=== PATIENT | female | born 1985 | race African-American/Black ===

== ENCOUNTER 2021-11-18 12:03 | Observation (INO) | payer BC, SELFPAY ==
--- NOTE | ~2021-11-18 | CT_ITS ---
EXAMINATION: CT abdomen pelvis w con DATE: 11/18/2021 14:29 INDICATION: epigastric pain, nausea and vomiting. Multiple prior surg r/o SBO TECHNIQUE: Computed tomography (CT) of the abdomen and pelvis was performed with 100 mL Omnipaque-350 intravenous contrast. Automated exposure control and iterative reconstruction technique were employe d. The dose-length product was 1268.14 mGy-cm. COMPARISON: 09/29/2017. FINDINGS: Lower thorax: Unremarkable. Liver: Normal. Biliary/Gallbladder: Gallbladder is absent. No bile duct dilation. Spleen: Normal. Pancreas: No mass or duct dilation. Adrenals:No mass. Kidneys: No mass, stone, or hydronephrosis. GI tract: Mild dilation of several small bowel loops in the left upper quadrant, without transition p oint. Distal esophageal and gastric wall edema. Chronic submucosal fat infiltration in the cecum. Mil d water density wall thickening in the transverse and descending colon. Normal appendix. Mesentery/Peritoneum: No ascites, mass, or free air. Retroperitoneum: No mass. Pelvis: Uterus absent, otherwise the pelvic organs are within normal limits. Bones/Soft Tissues: Soft tissues and body wall unremarkable. No acute osseous finding. Additional Findings: None. IMPRESSION: Mild left upper quadrant small bowel dilation, likely ileus. Early obstruction is not excluded. Infec tious/inflammatory colitis. Esophagitis/gastritis. Reviewed, dictated and finalized at location K. IMPRESSION: Mild left upper quadrant small bowel dilation, likely ileus. Early obstruction is not excluded. Infectious/inflammatory colitis. Esophagitis/gastritis.
--- NOTE | ~2021-11-18 | XR_ITS ---
EXAMINATION: XR abdomen obstructive series EXAM DATE: 11/19/2021 05:59 INDICATION: Ileus. TECHNIQUE: Frontal upright projection of the upper abdomen, frontal projection of the lower abdomen f or interpretation. Correlation is made to CT from yesterday. FINDINGS: There is expected amount of colonic stool and gas. No small bowel dilation, nonobstructiv e bowel gas pattern. There are no suspicious calcifications identified. There is no organomegaly suspected. The bones are unremarkable. There is no free intraperitoneal air. The lung bases are clear. There are cholecystectomy clips. IMPRESSION: Unremarkable abdomen x-ray exam. Reviewed, dictated and finalized at location A.
--- NOTE | ~2021-11-18 | XR_ITS ---
EXAMINATION: XR UGI water soluble w sbs EXAM DATE: 11/19/2021 12:45 INDICATION: Dysphagia, esophagitis, ileus vs obstruction. TECHNIQUE: [employer] radiograph was acquired. Water-soluble Omnipaque solution upper GI examination and s mall bowel series was performed by radiologist Enzo Rothman M.D. Pulsed dose reduction fluoroscopy wa s used with fluoroscopic time of 0.6 minutes. The DAP for this procedure was 16.5 Gycm2. A total of 104 images obtained for the exam. Correlation is made to CT abdomen pelvis from 11/18/2021. FINDINGS: There is no esophageal stricture, diverticulum or mass identified. There is small sliding gastroesophageal hiatal hernia. The gastroesophageal junction is open at times but patient was in the upright position, reflux was not specifically observed. The stomach has a normal appearance without evidence of mass lesion, ulceration or filling defect. T here is normal rugal fold pattern. The duodenum and duodenal sweep are normal in appearance. Mildly dilated jejunum, could be mild ileus/enteritis. Ileal and jejunal fold patterns are normal. T here is no small bowel wall thickening or mass effect displacing small bowel. There are no intralumi nal filling defects identified. Terminal ileum is normal in appearance. Contrast reached the colon between 1 and 1.5 hours. IMPRESSION: 1. Mildly dilated jejunum, could be mild ileus/enteritis. Normal transit time. 2. Small sliding gastroesophageal hiatal hernia. Reviewed, dictated and finalized at location A.
[2021-11-18 12:35] VITALS: BP 148/97; PULSE 110; RESP 16; TEMP 37.2; O2SAT 100
--- NOTE | 2021-11-18 13:37 | PC.NURSE ---
Patient states she is unable to urinate at this time.
--- NOTE | 2021-11-18 13:40 | ED.ABDPAIN ---
HPI - Abdominal Pain General Chief Complaint: Abdominal Pain Stated Complaint: vomiting Time Seen by Provider: 11/18/21 13:05 Source: patient History of Present Illness HPI narrative: Patient presents with abdominal pain. Patient ports she has had abdominal pain that radiates to her back for approximately 1 month however the past few days it has gotten more severe and is now associated with nausea and vomiting. Pain is achy, constant, worse with laying flat improves with sitting up. since her pain was getting worse she came to the ER for further evaluation. She denies any blood bile in her excretion she denies any diarrhea or melena she denies any urinary symptoms she does report subjective fevers at home. Reports prior history of cholecystectomy appendectomy and hysterectomy. Denies any recent antibiotics Related Data Home Medications Medication Instructions Recorded Confirmed bupropion HCl 150 mg PO DAILY 11/18/21 11/18/21 Allergies Allergy/AdvReac Type Severity Reaction Status Date / Time No Known Allergies Allergy Verified 11/18/21 17:29 Review of Systems Review of Systems: CONSTITUTIONAL: Denies fever, chills, or sweats. EYES: Denies visual changes, redness, or discharge. ENT: Denies rhinorrhea, congestion, sore throat, or otalgia. CARDIOVASCULAR: Denies chest pain, palpitations, or edema. RESPIRATORY: Denies cough or dyspnea. GASTROINTESTINAL: Reports abdominal pain nausea and vomiting GENITOURINARY: Denies dysuria or hematuria. SKIN: Denies rash or itching. MUSCULOSKELETAL: Denies joint pain, or myalgia. NEUROLOGIC: Denies headache, numbness, dizziness, or weakness. PSYCHIATRIC: Denies anxiety or depression. All systems reviewed & are unremarkable except as noted in HPI and below PMFSH Past Medical History Medical History Anxiety Fibroid uterus Obesity Surgical History Surgical History History of hysterectomy 06/2019 - Robotic-assisted laparoscopic total vaginal hysterectomy with bilateral salpingectomy History of laparoscopic appendectomy 06/2017 - Laparoscopic appendectomy with pathology findings of early acute appendicitis with serosal and subserosal endometriosis History of laparoscopic cholecystectomy 2010 at [place] Family History Family History (Updated 11/18/21 @ 17:20 by Deanna Muller RN) Grandparent Diabetes mellitus Hypertension Cervical cancer Sibling Hypertension Mother Aneurysm Social History Social History Smoking packs per day: 0.25 Smoking cigarettes per day: 5.0 Years smoked: 2 Smoking pack-years: 0.50 Smoking status: Current every day smoker Tobacco type: cigarettes Alcohol intake: current Drinks per week: 2 Alcohol use details: 3 glasses of wine per week Substance use: current Substance use type: marijuana Other substance usage details: Occasionally, not sure of last use Living arrangements: with family Gender identity (if verbalized by the patient): Female Spiritual care concerns: No Exam Narrative: GENERAL: Well-appearing, well-nourished, and in no acute distress. HEAD: Normocephalic, atraumatic. EYES: PERRLA and EOMI. ENT: Nares clear, no rhinorrhea or epistaxis. Mucous membranes moist. NECK: Supple. No masses. No JVD CHEST: Clear to auscultation. No respiratory distress. No wheezes rales or rhonchi HEART: Regular rate and rhythm. No murmur heard. Normal peripheral pulses. ABDOMEN: Moderate upper abdominal pain, no rebound or guarding soft, nondistended, normal active bowel sounds. EXTREMITIES: Normal range of motion. No edema. SKIN: Warm, dry, no rash. NEURO: No focal deficits. Alert and oriented x3. PSYCH: Normal mood and affect. Course Reevaluation(s) Reevaluation #1: Patient reports nausea is improved but continues to have abdominal sasha
[2021-11-18 13:49] LABS: Basophils Percent Auto 0.2 % (0.2-1.2); Eosinophils Absolute Auto 0.1 K/mm3 (0-0.3); Eosinophils Percent Auto 0.9 % (0-4.4); Hematocrit 42.5 % (37.0-47.0); Hemoglobin 13.2 g/dL (12.0-15.0); Immature Granulocyte Absolute 0.02 K/mm3 (0.00-0.031); Immature Granulocyte Percent A 0.3 % (0-0.5); Lymphocytes Percent Auto 12.2 % (18.3-44.2); Mean Corpuscular HGB Conc 31.1 g/dl (32-36); Mean Corpuscular Hemoglobin 27.3 pg (26-34); Mean Platelet Volume 10.2 fl (7.4-10.4); Monocytes Absolute Auto 0.4 K/mm3 (0.1-0.6); Monocytes Percent Auto 6.4 % (2.6-8.5); Neutrophils Absolute Auto 5.2 K/mm3 (1.3-6.7); Platelet Count Result 287 k/mm3 (150-375); Red Blood Count 4.83 M/mm3 (4.2-5.4); Red Cell Distribution Width 14.5 % (11.5-14.5); White Blood Count 6.6 K/mm3 (4.5-10.0)
[2021-11-18] MEDS: SODIUM CHLORIDE 0.9% IV 1,000 ML 999 ML IV CONT (13:49)
[2021-11-18] MEDS: ONDANSETRON INJ 4 MG/2 ML VIAL IV PUSH ×3 (13:50→21:16)
[2021-11-18] MEDS: MAG HYDROX/AL HYDROX/SIMETH 30 ML UDC PO ×3 (13:50→23:38)
[2021-11-18] MEDS: LIDOCAINE HCL 2% VISC SOLN 15 ML UDC 20 ML PO (13:50)
[2021-11-18 14:11] LABS: Alanine Aminotransferase 19 U/L (4-35); Albumin Level 4.4 g/dL (3.5-5.1); Alkaline Phosphatase 63 U/L (38-126); Anion Gap 5 mmol/L (8-16); Aspartate Amino Transferase 24 U/L (14-36); Bilirubin,Total 0.4 mg/dL (0.2-1.3); Blood Urea Nitrogen 12 mg/dL (7-17); Calcium 8.7 mg/dL (8.4-10.2); Carbon Dioxide 23 mmol/L (22-30); Chloride 105 mmol/L (98-107); Estimated CRCL calculation 132 ml/min; Estimated Glomerular Filt Rate > 60; Glucose 89 mg/dL (65-110); Lipase 63 U/L (23-300); Potassium 3.8 mmol/L (3.4-5.0); Sodium 133 mmol/L (137-145)
[2021-11-18 15:00] LABS: Appearance Urine Cloudy (Clear); Bilirubin Urine Negative (Negative); Blood Urine Trace-lysed (Negative); Glucose Urine UA Negative (Negative); Ketones Urine Negative (Negative); Leukocyte Esterase Ur Negative LEU/UL (Negative); Nitrate Urine Negative (Negative); Protein Urine Negative (Negative); Specific Grav Ur 1.015 (1.001-1.035); Urobilinogen Urine 0.2 mg/dL (<2.0); pH Urine 5.5 (5.0-9.0)
[2021-11-18 15:13] LABS: Squamous Epithelial Cell Urine Many /hpf (Few)
[2021-11-18 15:28] LABS: Add Urine Microscopic? YES; Color Urine Light Yellow (Yellow)
[2021-11-18] MEDS: KETOROLAC 15 MG/ML VIAL (*BKC) IV PUSH (15:58)
[2021-11-18 16:03] VITALS: BP 145/89; PULSE 96; RESP 18; O2SAT 100
--- NOTE | 2021-11-18 16:13 | PM.IMHP ---
H&P: HPI History of Present Illness Date/Time: 11/18/21 16:13 Chief Complaint: Abdominal pain, nausea, vomiting Narrative: This is a 35-year-old female who presented to the ER today with complaints of abdominal pain, nausea, and vomiting. She reports that she has dealt with constipation for years. She reports that for the last month, she has been experiencing mild cramping abdominal pain across her central abdomen that is associated with bloating. She initially felt this was related to constipation and she was taking magnesium citrate, 1/2 a bottle, about twice per week to help keep her bowels moving. She felt some relief of the bloating and gas after having a BM, but continued to have the cramping abdominal pain. She denies ever having this pain before in the past. She denies any diarrhea or other symptoms associated with this. She denies any close contacts with similar symptoms. Then, over the past 3 days, her abdominal pain gradually became more severe and she developed nausea and vomiting. She reports her abdominal pain continued to be cramping in nature and was radiating into her mid back lower back. She compares the pain to labor pains she experienced with her children. She reports having the constant feeling that she is full and bloated. She states that she has tried eating at home over the past 3 days and shortly after eating, she will vomit. She feels that eating does aggravate her pain. She denies any diarrhea. She denies bloody, bilious, or coffee-ground emesis. She denies hematochezia or melena. She reports that her stools are very hard and small with her last BM this morning around 4:00 am. She has not vomited since around 11:00 am this morning. The CT scan of the abdomen and pelvis showed mild left upper quadrant small bowel dilation, likely ileus, although early obstruction is not excluded, infectious/inflammatory colitis, esophagitis/gastritis. Labs are unremarkable with a normal WBC count. Our service has been consulted by the ED physician and she is being admitted to our service. She is now seen in the ER. Review of Systems Review of Systems: All systems reviewed & are unremarkable except as noted in HPI and below Constitutional: Constitutional: Reports as per HPI, Denies chills and Denies fatigue Eyes: Eyes: Reports no additional eye complaints and Denies change in vision ENT: Reports system reviewed and no additional complaints, except as documented and Reports Normal hearing present Cardiovascular: Cardiovascular: Reports no additional cardiovascular complaints, Denies chest pain and Denies leg edema Respiratory: Respiratory: Reports no additional respiratory complaints, Denies cough and Denies dyspnea Gastrointestinal: Gastrointestinal: Reports as per HPI, Reports no additional gastrointestinal complaints, Reports abdominal pain, Denies melena, Reports bloating, Denies hematochezia, Denies change in stool character, Denies coffee ground emesis, Reports constipation (chronic), Reports dysphagia, Denies diarrhea, Denies loose stools, Reports nausea, Reports vomiting and Denies hematemesis Genitourinary: Genitourinary: Reports no additional female genitourinary complaints, Denies hematuria and Denies dysuria Musculoskeletal: Musculoskeletal: Reports no additional musculoskeletal complaints, Denies deformity and Denies joint swelling Neurologic: Reports system reviewed and no additional complaints, except as documented, Denies dizziness, Denies focal weakness, Denies numbness and Denies tingling Psychiatric: Psychiatric: Reports anxiety (hx of anxiety, takes wellbutrin) [facility] Past Medical History Medical History Anxiety Fibroid uterus Obesity Surgical History Surgical History History of hysterectomy 06/2019 - Robotic-assisted laparoscopic total vaginal hysterectomy with bilateral salpingectomy History of
[2021-11-18 16:30] VITALS: BP 122/74; PULSE 86; RESP 16; TEMP 37.4; O2SAT 100
--- NOTE | 2021-11-18 16:30 | PC.NURSE ---
This patient, Cindy Sarkar, was admitted to 3 Med Surg Room 311-01. Patient/family oriented to hospital policies and general routines including ID bracelet, bed and alarms, visiting hours, pain management, procedures, bathroom and other care routines, personal items, smoking policy, room service/diet, and visiting hours.Repot received from [employer] [employer]. Information on how to activate the Rapid Response Team has been discussed. Patient/Family are encouraged to report perceived risks to care and to ask questions if they do not understand what they are told or what they should do.
[2021-11-18] MEDS: SODIUM CHLORIDE 0.9% IV 1,000 ML 125 ML IV CONT ×2 (17:02→23:38)
[2021-11-18] MEDS: MORPHINE SULFATE (*CRX) 4 MG/ML INJ IV PUSH ×2 (17:03→20:42)
[2021-11-18 17:08] VITALS: BMI 36.6
[2021-11-18] MEDS: PANTOPRAZOLE SODIUM IV 40 MG VIAL IV PUSH (17:41)
[2021-11-18 20:42] VITALS: PULSE 72; O2SAT 96
[2021-11-18 21:50] VITALS: BP 107/55; PULSE 69; RESP 18; TEMP 36.4; O2SAT 100
[2021-11-18 22:31] LABS: Anion Gap 7 mmol/L (8-16); Blood Urea Nitrogen 9 mg/dL (7-17); Calcium 8.1 mg/dL (8.4-10.2); Carbon Dioxide 22 mmol/L (22-30); Chloride 104 mmol/L (98-107); Estimated CRCL calculation 164 ml/min; Estimated Glomerular Filt Rate > 60; Glucose 114 mg/dL (65-110); Potassium 3.5 mmol/L (3.4-5.0); Sodium 133 mmol/L (137-145)
[2021-11-19 05:27] VITALS: BP 115/69; PULSE 85; RESP 18; TEMP 36.7; O2SAT 100
[2021-11-19] MEDS: MAG HYDROX/AL HYDROX/SIMETH 30 ML UDC PO ×4 (05:34→23:02)
[2021-11-19] MEDS: PANTOPRAZOLE SODIUM IV 40 MG VIAL IV PUSH ×2 (05:37→20:43)
[2021-11-19 05:45] LABS: Basophils Percent Auto 0.2 % (0.2-1.2); Eosinophils Absolute Auto 0.1 K/mm3 (0-0.3); Eosinophils Percent Auto 1.2 % (0-4.4); Hemoglobin 12.8 g/dL (12.0-15.0); Immature Granulocyte Absolute 0.02 K/mm3 (0.00-0.031); Immature Granulocyte Percent A 0.4 % (0-0.5); Lymphocytes Absolute Auto 0.95 K/mm3 (0.9-3.2); Lymphocytes Percent Auto 18.7 % (18.3-44.2); Mean Corpuscular HGB Conc 32.8 g/dl (32-36); Mean Corpuscular Volume 85.3 fl (80-100); Mean Platelet Volume 10.2 fl (7.4-10.4); Monocytes Absolute Auto 0.5 K/mm3 (0.1-0.6); Monocytes Percent Auto 9.6 % (2.6-8.5); Neutrophils Absolute Auto 3.6 K/mm3 (1.3-6.7); Neutrophils Percent Auto 69.9 % (45.5-73.1); Platelet Count Result 269 k/mm3 (150-375); Red Blood Count 4.57 M/mm3 (4.2-5.4); Red Cell Distribution Width 14.2 % (11.5-14.5); White Blood Count 5.1 K/mm3 (4.5-10.0)
[2021-11-19 05:55] LABS: Lipase 38 U/L (23-300); Magnesium 2.2 mg/dL (1.6-2.3)
[2021-11-19 06:00] LABS: Lactic Acid Reflex < 0.5 mmol/L (0.7-2.1)
[2021-11-19 08:25] VITALS: O2SAT 96
--- NOTE | 2021-11-19 10:10 | PM.PNGS ---
Progress Note: A&P Assessment and Plan (1) Ileus: Code(s): K56.7 - Ileus, unspecified Status: Acute Assessment and Plan: Clinically improving. Plain films show normal bowel gas pattern. She is passing lots of gas, but still no BM. Will get a Gastrografin UGI/SBFT today to evaluate the dysphagia she was complaining of considering her esophagitis/gastritis on CT and also to further evaluate the ileus versus possible early obstruction. Will plan to start clear liquids after her study if it is unremarkable. Encouraged walking the halls. (2) Colitis: Code(s): K52.9 - Noninfective gastroenteritis and colitis, unspecified Status: Acute Assessment and Plan: Colitis mentioned on CT. No complaints of diarrhea. Clinically improving. WBC normal and she is afebrile. No peritoneal signs. Continue to monitor. (3) Esophagitis with gastritis: Code(s): K29.70 - Gastritis, unspecified, without bleeding; K20.90 - Esophagitis, unspecified without bleeding Status: Acute Assessment and Plan: Esophagitis/gastritis noted on CT, also with complaints of dysphagia prior to admission. Will get Gastrografin UGI with SBFT to further evaluate prior to starting liquids. Continue Protonix Q12H. Avoid NSAIDs IF UGI is unremarkable and she continues to improve, then would recommend outpatient GI referral (4) Abdominal pain: Qualifiers: Abdominal location: upper abdomen, unspecified Qualified Code(s): R10.10 - Upper abdominal pain, unspecified Code(s): R10.9 - Unspecified abdominal pain Status: Acute Assessment and Plan: Seems to be improving and now localized to the epigastric area. Unclear etiology. See plan above. (5) Nausea & vomiting: Qualifiers: Vomiting type: unspecified Qualified Code(s): R11.2 - Nausea with vomiting, unspecified Code(s): R11.2 - Nausea with vomiting, unspecified Status: Acute Assessment and Plan: Resolving. Will try clear liquids if UGI/SBFT is unremarkable. (6) Smoker: Code(s): F17.200 - Nicotine dependence, unspecified, uncomplicated Status: Acute (7) Obesity: Code(s): E66.9 - Obesity, unspecified Status: Acute Additional Plan I have discussed the patient's case and plan of care with Dr. John. Subjective Subjective Date/Time Seen: 11/19/21 10:10 Patient reports: no new complaints, feels better, pain is less, flatus, no bowel movement and afebrile Interval history: Patient seen and examined. She reports feeling much better today. She had a few intermittent episodes of sharp epigastric abdominal pain overnight, but reports it has improved today. She reports feeling sore in the epigastric area this morning. She denies any nausea or vomiting since being admitted. She actually reports being hungry this morning. No other complaints at this time. Review of Systems Review of Systems: All systems reviewed & are unremarkable except as noted in HPI and below Exam Const: General: no acute distress GI: Inspection: non-distended GI Palp: Yes Soft to palpation, Yes Tenderness to palpation present (GI) (no tenderness, just reports feeling sore with palpation to epigastric area), No Guarding due to palpation present (GI), No Hernia present and No Rebound tenderness present Auscultation: Hypoactive bowel sounds present Neuro: General: moves all extremities and no focal motor deficits Extrem: General: normal to inspection Psych: Insight: Good insight present (Psych) Judgement: Good judgement present (Psych) Objective Data Vital Signs Vital Signs: Vital Signs - 24 hr 11/18/21 12:35 11/18/21 16:03 11/18/21 16:30 Temperature 98.9 F 99.4 F Pulse Rate 110 H 96 86 Respiratory Rate 16 18 16 Blood Pressure 148/97 H 145/89 H 122/74 Pulse Oximetry 100 100 100 11/18/21 20:42 11/18/21 21:50 11/19/21 05:27 Temperature 97.5 F L 98.0 F Pulse Rate 72 69 85 Resp
[2021-11-19 14:00] VITALS: BP 129/73; PULSE 65; RESP 18; TEMP 36.4; O2SAT 100
[2021-11-19] MEDS: HYDROcodone/acetaminophen (*CRX) 5-325 MG TABLET 1 TAB PO ×2 (16:54→23:02)
[2021-11-19 22:00] VITALS: BP 111/71; PULSE 52; RESP 16; TEMP 36.1; O2SAT 100
[2021-11-20] MEDS: MAG HYDROX/AL HYDROX/SIMETH 30 ML UDC PO (05:36)
[2021-11-20 06:00] VITALS: BP 117/59; PULSE 60; RESP 16; TEMP 37.2; O2SAT 100
[2021-11-20 06:01] LABS: Anion Gap 6 mmol/L (8-16); Blood Urea Nitrogen 5 mg/dL (7-17); Calcium 8.1 mg/dL (8.4-10.2); Carbon Dioxide 24 mmol/L (22-30); Chloride 105 mmol/L (98-107); Estimated CRCL calculation 135 ml/min; Estimated Glomerular Filt Rate > 60; Glucose 92 mg/dL (65-110); Potassium 3.3 mmol/L (3.4-5.0); Sodium 135 mmol/L (137-145)
--- NOTE | 2021-11-20 09:57 | PM.DS ---
DS: Admitting Diagnosis Discharge Date 11/20/2021 Admitting Diagnosis abdominal pain possible small bowel obstruction DS: Discharge Diagnosis Discharge Diagnosis (1) Ileus: Onset Date: ~10/2021 Code(s): K56.7 - Ileus, unspecified Status: Acute Assessment and Plan: patient presented to the ER and CT scan suggested ileus versus small-bowel obstruction. Patient was observed without NG tube. Pain medication and bowel rest were prescribed. The day following her admission the patient had a small-bowel follow-through which showed no signs of obstruction even though she has had multiple previous surgeries. We felt most likely she had an episode of severe viral gastroenteritis since her white count was not significantly elevated. The upper GI did show a small hiatal hernia therefore we are discharging her on Prilosec to try to help settle any problems with that. (2) Esophagitis with gastritis: Onset Date: ~10/2021 Code(s): K29.70 - Gastritis, unspecified, without bleeding; K20.90 - Esophagitis, unspecified without bleeding Status: Acute Assessment and Plan: This was suggested by thickening of the wall on CT. ( esophagus and stomach). Upper GI suggested no significant problems other than a small hiatal hernia. There were no definite ulcers. Patient did improve on IV Protonix b.i.d.. Therefore, I suggest to her taking this twice a day for 2 weeks and then just cut back to once a day then talk with her new PCP about continuing care for this. She knows that it would help to lose weight. She also has been fighting some constipation for the last month while on a keto diet. She will add fiber and liberalize the keto diet slump somewhat. (3) Abdominal pain: Qualifiers: Abdominal location: upper abdomen, unspecified Qualified Code(s): R10.10 - Upper abdominal pain, unspecified Code(s): R10.9 - Unspecified abdominal pain Status: Acute (4) Smoker: Code(s): F17.200 - Nicotine dependence, unspecified, uncomplicated Status: Acute (5) Obesity: Onset Date: Unknown Code(s): E66.9 - Obesity, unspecified Status: Acute Assessment and Plan: Patient had been trying a keto diet and had been feeling worse and constipated over the last 1 month therefore she will liberalize this a little bit I encouraged her to increase the fiber in her diet and we presented her with some information about a low-fiber diet. She will may be take some [id number] Metamucil or Citrucel to try to improve stooling pattern and increase fiber. She will try to maybe do a combination of a modified keto diet with increased fiber and a little bit more carbs. I encouraged her to increase her activity to try to continue the weight loss. Patient will follow-up with PCP on continued recommendations for healthy diet and weight loss. DS: Summary Hospital Course Reason for hospitalization: Severe abdominal pain with CT scan showing signs of thickening of the esophagus stomach and possible signs of ileus versus partial small-bowel obstruction Hospital Course: patient has significant problems for 24 hours with cramping pain in the mid upper abdomen. She however showed no continuing signs of obstruction. Follow-up plain x-rays revealed no dilated loops of small bowel. She improved with the use of b.i.d. PPI IV and we will send her home with this. She had her diet gradually advanced and upon discharge was ready to advance to a soft low-fiber diet. repeat laboratories were pretty much in normal range. Status at Discharge Functional status at discharge: independent ambulation Time Spent with Patient Time attestation: Total time spent providing and/or coordinating discharge services: Time spent: Greater than 30 minutes Specific discharge activities: 1. Discussed instructions regarding continuing PPI b.i.d. x2 weeks then cutting back to once a day until she discusses it with her n
[2021-11-20] MEDS: PANTOPRAZOLE SODIUM IV 40 MG VIAL IV PUSH (10:00)
[2021-11-20] MEDS: HYDROmorphone HCL INJ (*CRX) 1 MG/ML SYR IV PUSH (10:18)
[2021-11-20 13:47] VITALS: BP 108/61; PULSE 55; RESP 17; TEMP 35.5; O2SAT 100
== END 2021-11-20 15:30 | disposition home or self-care (01) ==
LOC: ANHED 15:44 → ANH3MEDSUR 16:09
PROVIDERS: Admitting Provider Surgery; Emergency Provider Emergency Medicine; Visit Provider Surgery
DX: K20.90 Esophagitis, unspecified without bleeding (principal); K44.9 Diaphragmatic hernia without obstruction or gangrene; K59.00 Constipation, unspecified; K29.70 Gastritis, unspecified, without bleeding; R10.10 Upper abdominal pain, unspecified; E66.9 Obesity, unspecified; D25.9 Leiomyoma of uterus, unspecified; F17.210 Nicotine dependence, cigarettes, uncomplicated; F41.9 Anxiety disorder, unspecified; Z68.36 Body mass index [BMI] 36.0-36.9, adult; Z90.49 Acquired absence of other specified parts of digestive tract; Z90.710 Acquired absence of both cervix and uterus
CPT/HCPCS: 36415; 74019; 74177; 74240; 74248; 80048; 80053; 81001; 83605; 83690; 83735; 85025; 96361; 96374; 96375; 96376; 99285; A9270; C9113; G0378; J0131; J1170; J1885; J2270; J2405; J7030; Q9967

== ENCOUNTER 2023-03-23 14:09 | Emergency (ER) | payer BC, SELFPAY ==
--- NOTE | ~2023-03-23 | CT_ITS ---
EXAMINATION: CT abdomen pelvis w con DATE: 03/23/2023 17:51 INDICATION: Epigastric pain and bloating TECHNIQUE: Computed tomography (CT) of the abdomen and pelvis was performed with 100 mL Omnipaque-350 intravenous contrast. Automated exposure control and iterative reconstruction technique were employe d. The dose-length product was 977.29 mGy-cm. COMPARISON: None FINDINGS: Dependent atelectasis in the bilateral lower lungs. Heart size is normal. No pericardial or pleural e ffusion. Focal hepatic steatosis at the ligamentum teres. Common bile duct measures up to 8 mm diamet er which is within normal limits post cholecystectomy with surgical clips at the gallbladder fossa. S pleen, pancreas, bilateral adrenal glands and kidneys are normal. Appendix is not visualized and ther e are surgical clips near the tip the cecum suggesting prior appendectomy. Bowels are otherwise tacho l. The uterus is not identified and has likely been surgically resected. Bladder is normal. No free i ntraperitoneal gas or fluid. No pathologically enlarged abdominal or pelvic lymphadenopathy. Bones ar e unremarkable. IMPRESSION: 1. No acute intra-abdominal/pelvic process. Reviewed, dictated and finalized at location A.
[2023-03-23 14:11] VITALS: BP 142/90; PULSE 114; RESP 20; TEMP 36.9; O2SAT 100
[2023-03-23 14:30] LABS: Basophils Percent Auto 0.3 % (0.2-1.2); Eosinophils Absolute Auto 0.2 K/mm3 (0-0.3); Hematocrit 40.1 % (37.0-47.0); Hemoglobin 12.9 g/dL (12.0-15.0); Immature Granulocyte Absolute 0.03 K/mm3 (0.00-0.031); Immature Granulocyte Percent A 0.4 % (0-0.5); Lymphocytes Absolute Auto 2.43 K/mm3 (0.9-3.2); Lymphocytes Percent Auto 30.6 % (18.3-44.2); Mean Corpuscular HGB Conc 32.2 g/dl (32-36); Mean Corpuscular Hemoglobin 27.3 pg (26-34); Mean Corpuscular Volume 84.8 fl (80-100); Mean Platelet Volume 9.9 fl (7.4-10.4); Monocytes Absolute Auto 0.6 K/mm3 (0.1-0.6); Monocytes Percent Auto 7.7 % (2.6-8.5); Neutrophils Absolute Auto 4.7 K/mm3 (1.3-6.7); Platelet Count Result 336 k/mm3 (150-375); Red Blood Count 4.73 M/mm3 (4.2-5.4); Red Cell Distribution Width 14.5 % (11.5-14.5)
[2023-03-23 14:50] LABS: Alanine Aminotransferase 21 U/L (6-35); Albumin Level 4.6 g/dL (3.5-5.1); Alkaline Phosphatase 61 U/L (38-126); Anion Gap 7 mmol/L (8-16); Aspartate Amino Transferase 28 U/L (14-36); Bilirubin,Total 0.3 mg/dL (0.2-1.3); Blood Urea Nitrogen 10 mg/dL (7-17); Calcium 9.6 mg/dL (8.4-10.2); Carbon Dioxide 28 mmol/L (22-30); Chloride 101 mmol/L (98-107); Estimated CRCL calculation 141 ml/min; Estimated Glomerular Filt Rate > 60; Glucose 91 mg/dL (65-110); Lipase 84 U/L (23-300); Potassium 3.9 mmol/L (3.4-5.0); Sodium 136 mmol/L (137-145)
[2023-03-23 15:56] VITALS: BP 129/76; PULSE 93; RESP 18; O2SAT 100
[2023-03-23 16:11] LABS: Amorphous Sediment Urine Present; Appearance Urine Turbid (Clear); Bacteria Urine 1+ /hpf; Bilirubin Urine Negative (Negative); Color Urine Yellow (Yellow); Glucose Urine UA Negative (Negative); Ketones Urine Negative (Negative); Leukocyte Esterase Ur Negative LEU/UL (Negative); Need Manual Microscopic Reviewed; Nitrate Urine Negative (Negative); Non Pathogenic Casts 0-2; Protein Urine Negative (Negative); Specific Grav Ur 1.014 (1.001-1.035); Squamous Epithelial Cell Urine Few /hpf (Few); Urobilinogen Urine 0.2 mg/dL (<2.0); WBC Urine 0-5 /hpf; pH Urine 7.5 (5.0-9.0)
[2023-03-23 16:13] LABS: Add Urine Microscopic? YES
--- NOTE | 2023-03-23 17:10 | ED.ABDPAIN ---
HPI - Abdominal Pain General Chief Complaint: Abdominal Pain Stated Complaint: Stomach pain Time Seen by Provider: 03/23/23 16:29 History of Present Illness HPI narrative: 37-year-old male with a history of esophagitis with gastritis, colitis, cholecystectomy, hemorrhagic ovarian cysts, partial hysterectomy, appendectomy reports for evaluation for generalized upper abdominal pain x2 weeks. Patient reports that the onset of symptoms 2 weeks ago, she thought her symptoms were related to gas and indigestion. She reports taking Tums, Gas-X, Mylanta and Tylenol without improvement. She states her pain is worsened over the past 2 days and describes it as bloating, cramping and a burning sensation. She reports nausea but no emesis. Her last bowel movement yesterday was normal. She does states she is not been passing gas the past few days. She denies fever, body aches or chills, chest pain or shortness of breath, dysuria or hematuria, vaginal bleeding or discharge, back pain. Denies melena, hematochezia, hematemesis. Related Data Home Medications Medication Instructions Recorded Confirmed bupropion HCl 150 mg 24 hr tablet, 150 mg PO DAILY 11/18/21 11/18/21 extended release Allergies Allergy/AdvReac Type Severity Reaction Status Date / Time No Known Allergies Allergy Verified 03/23/23 15:57 Review of Systems Review of Systems: CONSTITUTIONAL: Denies fever, chills EYES: Denies visual changes, redness, or discharge. ENT: Denies rhinorrhea, congestion, sore throat, or otalgia. CARDIOVASCULAR: Denies chest pain, palpitations, or edema. RESPIRATORY: Denies cough or dyspnea. GASTROINTESTINAL: See HPI GENITOURINARY: Denies dysuria or hematuria. SKIN: Denies rash or itching. MUSCULOSKELETAL: Denies back pain, joint pain, or myalgia. NEUROLOGIC: Denies headache, numbness, dizziness, or weakness. PSYCHIATRIC: Denies anxiety or depression. [facility] Past Medical History Medical History Anxiety Fibroid uterus Obesity (Unknown) Surgical History Surgical History History of hysterectomy 06/2019 - Robotic-assisted laparoscopic total vaginal hysterectomy with bilateral salpingectomy History of laparoscopic appendectomy 06/2017 - Laparoscopic appendectomy with pathology findings of early acute appendicitis with serosal and subserosal endometriosis History of laparoscopic cholecystectomy 2010 at [place] Family History Family History Grandparent Diabetes mellitus Hypertension Cervical cancer Sibling Hypertension Mother Aneurysm Social History Social History Smoking packs per day: 0.25 Smoking cigarettes per day: 5.0 Years smoked: 2 Smoking pack-years: 0.50 Smoking status: Current every day smoker Tobacco type: cigarettes Alcohol intake: current Drinks per week: 2 Alcohol use details: 3 glasses of wine per week Substance use: current Substance use type: marijuana Other substance usage details: Occasionally, not sure of last use Living arrangements: with family Gender identity (if verbalized by the patient): Female Spiritual care concerns: No Exam Narrative: GENERAL: Well-appearing, in no acute distress. Patient resting comfortably in exam bed. She is pleasant and conversational. HEAD: Normocephalic EYES: PERRLA ENT: Nares clear. Mucous membranes moist. Oropharynx without tonsillar hypertrophy exudate or other lesions. NECK: Supple. CHEST: No respiratory distress. Clear to auscultation, no adventitious breath sounds. HEART: Regular rate and rhythm. No murmur heard. Normal peripheral pulses. ABDOMEN: Normal active bowel sounds. Tenderness in the epigastrium, left upper quadrant and right upper quadrant. Negative Barnes's. No tenderness remainder
[2023-03-23] MEDS: SODIUM CHLORIDE 0.9% IV 1,000 ML 999 ML IV CONT (17:18)
[2023-03-23] MEDS: ONDANSETRON INJ 4 MG/2 ML VIAL IV PUSH (17:18)
[2023-03-23] MEDS: MORPHINE SULFATE (*CRX) 4 MG/ML INJ IV PUSH (17:21)
[2023-03-23] MEDS: FAMOTIDINE 20 MG/2 ML VIAL IV PUSH (17:22)
[2023-03-23] MEDS: BELLADONNA ALK/PHENOB ELIX 10 ML, MAG HYDROX/ALUMINUM HYD/SIMETH 30 ML, LIDOCAINE HCL 2... PO (17:24)
[2023-03-23] MEDS: PANTOPRAZOLE SODIUM IV 40 MG VIAL IV PUSH (18:22)
[2023-03-23] MEDS: ACETAMINOPHEN 500 MG TABLET 1000 MG PO (18:40)
[2023-03-23 18:43] VITALS: BP 122/73; PULSE 77; RESP 18; O2SAT 100
== END 2023-03-23 19:05 | disposition home or self-care (01) ==
PROVIDERS: Emergency Medicine; Emergency Provider Physician Assistant
DX: R10.13 Epigastric pain (principal); F41.9 Anxiety disorder, unspecified; E66.9 Obesity, unspecified; Z68.38 Body mass index [BMI] 38.0-38.9, adult; F17.210 Nicotine dependence, cigarettes, uncomplicated; Z90.49 Acquired absence of other specified parts of digestive tract; Z90.711 Acquired absence of uterus with remaining cervical stump
CPT/HCPCS: 36415; 74177; 80053; 81001; 83690; 85025; 96361; 96374; 96375; 99284; A9270; C9113; J2270; J2405; J7030; Q9967

== ENCOUNTER 2023-03-30 15:52 | Outpatient (CLI) | payer BC, SELFPAY ==
[2023-03-30 16:24] LABS: CRP < 0.5 mg/dL (<1.0)
[2023-03-30 17:00] LABS: Erythrocyte Sedimentation Rate 13 mm/hr (0-20)
[2023-04-02 11:25] LABS: Immunoglobulin A 143 mg/dL (47-310); TTG IGA AB <1.0 U/mL (<15.0)
== END 2023-03-30 15:53 | disposition home or self-care (01) ==
LOC: ANHLAB 15:53
PROVIDERS: Visit Provider Nurse Practitioner Family
DX: K92.89 Other specified diseases of the digestive system (principal); R11.2 Nausea with vomiting, unspecified; R10.9 Unspecified abdominal pain
CPT/HCPCS: 36415; 82784; 85652; 86140; 86364

== ENCOUNTER 2023-04-09 07:48 | Outpatient (CLI) | payer BC, SELFPAY ==
--- NOTE | ~2023-04-09 | NM_ITS ---
EXAM: NM gastric emptying study DATE: 04/09/2023 12:24 INDICATION: Nausea and vomiting. TECHNIQUE: A gastric emptying study was performed using the methodology of Marlene YORK, et al. J Nucl Med 2007; 48:568-572. The patient was given a meal consisting of 2 scrambled eggs labeled with 0.962 mCi Tc-99m sulfur colloid, 2 slices of toast, two packages of jam, and approximately 120 mL of water . Simultaneous anterior and posterior 1-min images of the abdomen were obtained with the patient supi ne at multiple time points over a total period of 4 hours. The geometric mean of anterior and posteri or views was determined, and the percentage retention was calculated for each time point. COMPARISON: CT abdomen and pelvis 03/23/2023 FINDINGS: Gastric retention of the radiotracer-labeled meal was 27%, 18%, and 7% at the 1-hour, 2-ho ur, and 4-hour time points, respectively. With this technique, apparent rapid gastric emptying is sug gested by <30% gastric retention at 1 hour. Delayed gastric emptying is defined by gastric retention of >90% at 1 hour, >60% retention at 2 hours, or >10% retention at 4 hours. IMPRESSION: 1. Rapid gastric emptying. Reviewed, dictated and finalized at location A. IMPRESSION: 1. Rapid gastric emptying.
== END 2023-04-09 07:49 | disposition home or self-care (01) ==
LOC: ANHIMG 07:50
PROVIDERS: PCP Nurse Practitioner Family; Visit Provider Nurse Practitioner Family
DX: K92.89 Other specified diseases of the digestive system (principal); R10.9 Unspecified abdominal pain; R11.2 Nausea with vomiting, unspecified
CPT/HCPCS: 78264; A9541

== ENCOUNTER 2023-04-13 01:50 | Day surgery (SDC) | payer BC, SELFPAY ==
[2023-04-08 10:32] VITALS: BMI 37.7
--- NOTE | 2023-04-12 10:08 | P.PNAN_ITS ---
Anes - Initial Pre Proc Eval Procedure: Operation Date: 04/13/23 13:00 Proposed Procedures p Esophagogastroduodenoscopy EGD - Nicolas Rodgers MD Date/Time: 04/12/23 10:08 Surgeon: Nicolas Rodgers MD Pre Op Diagnosis: N/V, unspecified abdominal pain Patient Data Age: 37 Gender: F Height: 1.57 m Weight: 93.5 kg Allergies Allergy/AdvReac Type Severity Reaction Status Date / Time No Known Allergies Allergy Verified 04/13/23 11:57 Home Medications Medication Instructions Recorded Confirmed Type pantoprazole 40 mg tablet,delayed 40 mg PO BID 1 month #60 tabs 03/30/23 04/08/23 Rx release Patient hx anesthesia problems: none Family hx anesthesia problems: none Results Review: All pre-operative results and documents have been reviewed as part of the pre- operative evaluation. [facility] Past Medical History Medical History Anxiety Fibroid uterus Obesity (Unknown) Surgical History Surgical History History of hysterectomy 06/2019 - Robotic-assisted laparoscopic total vaginal hysterectomy with bilateral salpingectomy History of laparoscopic appendectomy 06/2017 - Laparoscopic appendectomy with pathology findings of early acute appendicitis with serosal and subserosal endometriosis History of laparoscopic cholecystectomy 2010 at [place] Family History Family History Grandparent Diabetes mellitus Hypertension Cervical cancer Sibling Hypertension Mother Aneurysm Social History Social History Smoking packs per day: 0.25 Smoking cigarettes per day: 5.0 Years smoked: 3 Smoking pack-years: 0.75 Smoking status: Current every day smoker Tobacco type: cigarettes Alcohol intake: current Drinks per week: 2 Alcohol use details: 4 drinks monthly Substance use: current Substance use type: does not use Other substance usage details: Occasionally, not sure of last use Living arrangements: with family Gender identity (if verbalized by the patient): Female Spiritual care concerns: No Anes - Eval Final PreProcedure Day of Procedure 04/12/23 10:08 Patient weight: obese Heart: regular rate and rhythm Lungs: clear to auscultation Airway: Mallampati scale class II Neurological: alert and oriented Last oral intake: >/= 8 hours ASA classification: II Emergent: no Anesthetic plan: proceed Anesthesia type and monitoring: general GIVS and standard monitoring Results Review: All pre-operative results and documents have been reviewed as part of the pre- operative evaluation. Informed Consent: The patient's anesthetic plan and its attendant risks and benefits were discussed with the patient/family/POA. Questions were solicited and answers provided to the satisfaction of the patient/family/POA.
[2023-04-13 11:58] VITALS: BP 112/69; PULSE 74; RESP 18; TEMP 36.2; O2SAT 100
[2023-04-13] MEDS: LACTATED RINGERS 1,000 ML 150 ML IV CONT (12:06)
--- NOTE | 2023-04-13 13:28 | WPDHPUPDATE1 ---
History and Physical Update Update Date/Time: 04/13/23 13:28 History and Physical has been reviewed, including an updated exam of the patient. There are NO changes in the patient's condition. Risks, benefits, and alternatives have been discussed and questions answered. Patient agrees to proceed with procedure.
[2023-04-13 13:50] VITALS: BP 96/58; PULSE 80; RESP 18; O2SAT 100
[2023-04-13 14:00] VITALS: BP 106/69; PULSE 81; RESP 18; O2SAT 100
[2023-04-13 14:10] VITALS: BP 127/72; PULSE 71; RESP 18; O2SAT 100
== END 2023-04-13 14:23 | disposition home or self-care (01) ==
PROVIDERS: PCP Nurse Practitioner Family; Visit Provider Internal Medicine Gastroenterology
PROC: 0DJ08ZZ Inspection of Upper Intestinal Tract, Via Natural or Artificial Opening Endoscopic (ICD-10-PCS; CPT 43235; principal; 2023-04-13 13:00)
DX: K29.70 Gastritis, unspecified, without bleeding (principal); F17.210 Nicotine dependence, cigarettes, uncomplicated; E66.9 Obesity, unspecified; Z68.38 Body mass index [BMI] 38.0-38.9, adult
CPT/HCPCS: 43239; 88305; J2704; J7120

== ENCOUNTER 2023-08-13 20:14 | Emergency (ER) | payer BC, SELFPAY ==
--- NOTE | ~2023-08-13 | XR_ITS ---
EXAMINATION: XR chest 2V Exam Date/Time: 08/13/2023 20:40 SURGICAL SCRUB TECHNICIAN HISTORY: CP WITH LEFT SIDED ARM NUMBNESS AND DIZZINESS Comparison: 03/12/2017. RESULT: Lines, tubes, and devices: None. Lungs and pleura: Clear. Cardiomediastinal silhouette: Stable. Other: No acute osseous or upper abdominal finding. IMPRESSION: No acute cardiopulmonary process. Reviewed, dictated and finalized at location K. ICAL SCRUB TECHNICIAN
--- NOTE | 2023-08-13 20:15 | ECG_ITS ---
Measurements Intervals [place] Rate: 103 P: 50 TN: 151 QRS: 32 QRSD: 81 T: 18 QT: 269 QTc: 353 Interpretive Statements SINUS TACHYCARDIA CANNOT RULE OUT SEPTAL INFARCT, AGE INDETERMINATE BORDERLINE T WAVE ABNORMALITY- INFERIOR LEADS ABNORMAL ECG NO PREVIOUS ECG AVAILABLE FOR COMPARISON Electronically Signed On 08-14-2023 7:05:29 SUPERINTENDENT LOGGING by Adolfo Esquivel D.O.
[2023-08-13 20:29] VITALS: BP 133/85; PULSE 95; RESP 16; TEMP 37.1; O2SAT 100
[2023-08-13 20:40] LABS: Basophils Percent Auto 0.4 % (0.2-1.2); Eosinophils Absolute Auto 0.2 K/mm3 (0-0.3); Eosinophils Percent Auto 2.5 % (0-4.4); Hemoglobin 12.9 g/dL (12.0-15.0); Immature Granulocyte Absolute 0.01 K/mm3 (0.00-0.031); Immature Granulocyte Percent A 0.1 % (0-0.5); Lymphocytes Absolute Auto 2.64 K/mm3 (0.9-3.2); Lymphocytes Percent Auto 37.1 % (18.3-44.2); Mean Corpuscular HGB Conc 30.7 g/dl (32-36); Mean Corpuscular Hemoglobin 26.5 pg (26-34); Mean Corpuscular Volume 86.4 fl (80-100); Mean Platelet Volume 9.8 fl (7.4-10.4); Monocytes Absolute Auto 0.4 K/mm3 (0.1-0.6); Monocytes Percent Auto 6.2 % (2.6-8.5); Neutrophils Absolute Auto 3.8 K/mm3 (1.3-6.7); Neutrophils Percent Auto 53.7 % (45.5-73.1); Platelet Count Result 324 k/mm3 (150-375); Red Blood Count 4.86 M/mm3 (4.2-5.4); Red Cell Distribution Width 14.4 % (11.5-14.5); White Blood Count 7.1 K/mm3 (4.5-10.0)
[2023-08-13 20:54] LABS: Prothrombin Time 13.3 Seconds (11.1-14.7)
[2023-08-13 20:55] LABS: Alanine Aminotransferase 18 U/L (6-35); Albumin Level 4.5 g/dL (3.5-5.1); Alkaline Phosphatase 53 U/L (38-126); Anion Gap 9 mmol/L (8-16); Aspartate Amino Transferase 24 U/L (14-36); Bilirubin,Total 0.4 mg/dL (0.2-1.3); Blood Urea Nitrogen 5 mg/dL (7-17); Calcium 9.5 mg/dL (8.4-10.2); Carbon Dioxide 28 mmol/L (22-30); Chloride 101 mmol/L (98-107); Estimated CRCL calculation 119 ml/min; Estimated Glomerular Filt Rate > 60; Glucose 87 mg/dL (65-110); Lipase 77 U/L (23-300); Partial Thromboplastin Time 29.3 SECONDS (22.3-36.8); Potassium 3.8 mmol/L (3.4-5.0); Sodium 138 mmol/L (137-145)
[2023-08-13 21:06] LABS: Troponin I < 0.012 ng/mL (0.000-0.034)
[2023-08-13 22:10] VITALS: BP 146/81; PULSE 78; RESP 20; O2SAT 100
--- NOTE | 2023-08-13 23:08 | ED.GENADULT ---
HPI - General Adult General Chief complaint: Chest Pain Stated complaint: chest pain, finger numbs Time Seen by Provider: 08/13/23 22:41 Source: patient Mode of arrival: ambulatory Limitations: no limitations History of Present Illness HPI narrative: This is a 37-year-old female who presents to the ED as a walk-in for chief complaint of sudden onset bilateral upper extremity tingling and lightheadedness. She reports this started while watching son's basketball game this evening. Also reports having chest pain that lasted for couple of minutes. No worsening with exertion. She states that the chest pain is completely resolved and she does not have any shortness of breath. The tingling in the arms and feet continue. Also states she is having a slight bilateral headache and light sensitivity now as well. Denies fevers, chills, abdominal pain, nausea, vomiting, neck pain, urinary problems, leg swelling, palpitations, cough. Related Data Allergies Allergy/AdvReac Type Severity Reaction Status Date / Time No Known Allergies Allergy Verified 04/13/23 11:57 Review of Systems Review of Systems: All systems as dictated in [facility] Past Medical History Medical History Anxiety Fibroid uterus Obesity (Unknown) Surgical History Surgical History History of hysterectomy 06/2019 - Robotic-assisted laparoscopic total vaginal hysterectomy with bilateral salpingectomy History of laparoscopic appendectomy 06/2017 - Laparoscopic appendectomy with pathology findings of early acute appendicitis with serosal and subserosal endometriosis History of laparoscopic cholecystectomy 2010 at [place] Family History Family History Grandparent Diabetes mellitus Hypertension Cervical cancer Sibling Hypertension Mother Aneurysm Social History Social History Smoking packs per day: 0.25 Smoking cigarettes per day: 5.0 Years smoked: 3 Smoking pack-years: 0.75 Smoking status: Current every day smoker Tobacco type: cigarettes Alcohol intake: current Drinks per week: 2 Alcohol use details: 4 drinks monthly Substance use: current Substance use type: does not use Other substance usage details: Occasionally, not sure of last use Living arrangements: with family Gender identity (if verbalized by the patient): Female Spiritual care concerns: No Exam Narrative: GENERAL: Well-appearing, well-nourished, and in no acute distress. HEAD: Normocephalic, atraumatic. EYES: PERRLA and EOMI. ENT: Nares clear, no rhinorrhea or epistaxis. Mucous membranes moist. Oropharynx without tonsillar hypertrophy exudate or other lesions. NECK: Supple. No adenopathy or masses. CHEST: No respiratory distress. Clear to auscultation. No wheezes rales or rhonchi HEART: Regular rate and rhythm. No murmur heard. Normal peripheral pulses. ABDOMEN: Soft, nontender, nondistended, normal active bowel sounds. MSK: Normal range of motion. No edema. SKIN: Warm, dry, no rash. NEURO: Alert and oriented x4. No focal deficits. Cranial nerves 2-12 intact. 5/5 strength in the upper and lower extremities. Coordination intact. PSYCH: Normal mood and affect. Course Course Emergency Course: Re-evaluation: She is feeling much better after headache cocktail. Patient is ambulatory without difficulty. Vital Signs Vital signs: Vital Signs Temperature 98.8 F 08/13/23 20:29 Pulse Rate 95 08/13/23 20:29 Respiratory Rate 16 08/13/23 20:29 Blood Pressure 133/85 08/13/23 20:29 Pulse Oximetry 100 08/13/23 20:29 Oxygen Delivery Room Air 08/13/23 20:29 Temperature 98.8 F 08/13/23 20:29 Pulse Rate 78 08/13/23 22:10 Respiratory Rate 20 08/13/23 22:10 Blood Pressure 146/81 H 08/13/23 22:10 Pulse Oximetry
[2023-08-13] MEDS: SODIUM CHLORIDE 0.9% IV 1,000 ML 999 ML IV CONT (23:45)
[2023-08-13] MEDS: KETOROLAC 15 MG/ML VIAL (*BKC) IV PUSH (23:46)
[2023-08-13] MEDS: diphenhydrAMINE HCl INJ 50 MG/ML VIAL 25 MG IV PUSH (23:46)
[2023-08-13] MEDS: PROCHLORPERAZINE EDISYLATE 10 MG/2 ML VIAL IV PUSH (23:46)
[2023-08-14 00:14] LABS: Troponin I < 0.012 ng/mL (0.000-0.034)
== END 2023-08-14 01:39 | disposition home or self-care (01) ==
PROVIDERS: Emergency Medicine; Emergency Provider Physician Assistant; PCP Nurse Practitioner Family
DX: R51.9 Headache, unspecified (principal); E66.9 Obesity, unspecified; Z68.41 Body mass index [BMI] 40.0-44.9, adult; F17.210 Nicotine dependence, cigarettes, uncomplicated; Z90.710 Acquired absence of both cervix and uterus; Z90.79 Acquired absence of other genital organ(s); Z90.49 Acquired absence of other specified parts of digestive tract; R00.0 Tachycardia, unspecified; R94.31 Abnormal electrocardiogram [ECG] [EKG]
CPT/HCPCS: 36415; 71046; 80053; 83690; 84484; 85025; 85610; 85730; 93005; 96361; 96374; 96375; 99284; J0780; J1200; J1885; J7030